=== PATIENT | male | born 1990 | race Hispanic/Latino ===

== ENCOUNTER → 2021-10-25 08:54 | Outpatient (CLI) | payer OTHER, SELFPAY ==
[2021-10-25 20:04] LABS: COVID19 - ORCAS (NP or Nasal) POSITIVE (Negative)
== END ==
PROVIDERS: Visit Provider Physician Assistant Medical
DX: Z20.822 Contact with and (suspected) exposure to COVID-19 (principal)
CPT/HCPCS: U0003

== ENCOUNTER 2023-08-14 10:58 | Emergency (ER) | payer OTHER, SELFPAY ==
--- NOTE | 2023-08-14 11:18 | PC.NURSE ---
Called for triage at [phone] and patient wasn't in waiting room. Will continue to recheck.
[2023-08-14 11:35] VITALS: BP 116/68; PULSE 81; RESP 22; TEMP 37.3; O2SAT 99; BMI 23.8
--- NOTE | 2023-08-14 11:35 | PC.NURSE ---
Patient called to come to triage and this Rn unable to find patient in waiting area.
--- NOTE | 2023-08-14 11:39 | PC.NURSE ---
This RN went out to the waiting room and patient was down in the surgical waiting room.
--- NOTE | 2023-08-14 14:02 | ED_ITS ---
HPI - Extremity Injury (Lower) General Chief Complaint: Extremity Injury, Lower Stated Complaint: hit with log at work Time Seen by Provider: 08/14/23 13:27 Source: patient Mode of arrival: Ambulatory History of Present Illness HPI Narrative: 33-year-old male presents for evaluation of left knee pain. Patient was struck in the leg with a heavy log while at work yesterday. Underwent negative x-ray imaging yesterday on [facility], and he was subsequently placed in a knee immobilizer and given crutches. He states that because of the pain and swelling there was concern for possible hardware displacement versus ligamentous injury and he was referred to the ER for additional evaluation. Patient has previous injury to lower L leg with chronically decreased ROM of the L ankle. Related Data Home Medications Medication Instructions Recorded Confirmed No Known Home Medications 08/13/23 08/13/23 Allergies Allergy/AdvReac Type Severity Reaction Status Date / Time No Known Drug Allergies Allergy Verified 08/14/23 11:46 Review of Systems Review of Systems Narrative: CONSTITUTIONAL- Denies: fever, chills, fatigue HEENT- Denies: sore throat, nosebleed, vision changes RESPIRATORY- Denies: shortness of breath, cough, wheezing CARDIAC- Denies: chest pain, edema, orthopnea GI- Denies: abdominal pain, nausea, vomiting, constipation, diarrhea - Denies: frequency, dysuria, hematuria, flank pain MSK-reports: Left knee pain, left knee swelling Denies: extremity pain, extremity swelling SKIN- Denies: rash, itching, burn, swelling NEUROLOGICAL- Denies: headache, numbness, weakness, dizziness PSYCHIATRIC- Denies: anxiety, depression, suicidal ideation, homicidal ideation Patient History Social History Smoking Status: Current every day smoker Smoking Status: Current every day smoker Substance Use Type: marijuana Exam Initial Vital Signs Initial Vital Signs: Vital Signs Temperature 99.1 F 08/14/23 11:35 Pulse Rate 81 08/14/23 11:35 Respiratory Rate 22 08/14/23 11:35 Blood Pressure 116/68 08/14/23 11:35 Pulse Oximetry 99 08/14/23 11:35 Oxygen Delivery Method Room Air 08/14/23 11:35 Const: Awake, alert, no acute distress, nontoxic appearing Eyes: PERRL, EOMI, conjunctiva normal ENT: Atraumatic, dentition normal, mucous membranes moist Cardiac: regular rate, regular rhythm RESP: unlabored, clear bilaterally, no wheezing GI: Atraumatic, soft, nontender, nondistended, no rebound, no guarding MSK: Swelling left knee compared to right knee. Pain of L knee with lateral stress Skin: Warm, Dry, intact, no rashes Neuro: AO x3, CN II-XII grossly intact, moves all extremities Psych: affect normal, mood normal, not suicidal, not homicidal Course Course Course Narrative: Patient presenting for concern of possible ligamentous injury versus hardware displacement of left knee after accident yesterday. No obvious displaced hardware on exam, patient does have swelling of the left knee, however patient already had negative x-rays taken yesterday and declines additional imaging at this time. I explained to the patient that there was no emergent need for MRI and he would need to follow up with either his primary care physician or orthopedic surgery for possible MRI and further evaluation of possible underlying ligamentous injury. Patient declined any pain medications in the emergency department. He we will call the Orthopedic surgery as soon as he leaves the emergency department. Counseled to continue to use crutches and the knee immobilizer. Rice instructions counseled at bedside. ED return precautions discussed at bedside. Patient expressed understanding of the plan and is in agreement at this time. All questions answered at the time of discharge. Vital Signs Vital signs: Vital Signs - 8 hr 08/14/23 11:35 Temperature 99.1 F Pulse Rate 81 Respiratory Rate 22 Blood Pressure 116/68 Pulse Oximetry 99 Oxygen Delivery Method Room Air Discharge Plan Departure Patient Disposition: Home Clinical Impression: Injury of knee, left, Contusion of knee, Sprain Instructions: DI for Knee Sprain, How to Use a Knee Immobilizer Prescriptions: No Action No Known Home Medications Referrals: Meir Sheriff MD [Physician] - Chad Gaytan MD [Primary Care Provider] - Stand Alone Forms: Patient Portal/API
== END 2023-08-14 14:17 | disposition home or self-care (01) ==
PROVIDERS: Emergency Provider Emergency Medicine; PCP Family Medicine
DX: S83.92XA Sprain of unspecified site of left knee, initial encounter (principal); W22.8XXA Striking against or struck by other objects, initial encounter; Y99.0 Civilian activity done for income or pay
CPT/HCPCS: 99281; 99282

== ENCOUNTER → 2023-10-27 16:17 | Outpatient (CLI) | payer OTHER, SELFPAY ==
--- NOTE | 2023-10-27 16:20 | DI.MRI.S_ITS ---
PROCEDURE: MR KNEE LT WO CON INDICATIONS: Contusion of left knee, initial encounter TECHNIQUE: Noncontrast sagittal PD fast spin echo and T2 fast spin echo with fat saturation, sagittal 3-D FLASH with fat saturation; coronal T1 spin echo and PD fast spin echo with fat saturation, and axial PD fast spin echo with fat saturation through the knee. COMPARISON: None. FINDINGS: Image quality: Excellent. Menisci: Signal abnormality involving posterior horn of medial meniscus is seen extending to inferior articulating surface series 7, image 8 suggestive of subtle oblique tear. The lateral meniscus is intact. The meniscal root ligaments appear intact. Cruciate ligaments: The anterior cruciate ligament is thickened with intrasubstance T2 hyperintense signal. The posterior cruciate ligament is intact. Medial structures: The medial collateral ligament appears thickened. Visualized portions of the pes anserinus tendons appear normal. No abnormal bursal fluid. Lateral structures: The lateral collateral ligament, long and short heads of the biceps femoris tendon appear intact. The popliteus tendon appears normal. Iliotibial band appears normal. Anterior structures: Distal quadriceps tendinosis at its superior patellar insertion is seen. Proximal and distal patellar tendinosis is also noted. Patellar alignment is normal. Chondromalacia involving lateral femoral trochlear cartilage is seen. No edema in the infrapatellar fat pad. Bones and cartilage: Prior intramedullary marked placement in tibial shaft is seen with susceptibility artifacts. No acute fracture or dislocation. Mild edema involving weight-bearing portion of lateral femoral condyle and medial periphery of medial femoral condyle is seen. Edema is also noted in proximal tibial shaft lateral to the fixation hardware. No discrete fracture line is seen. Articulating cartilage in medial and lateral femoral tibial compartments are normal in thickness. Patellar cartilage is intact. Joint space: There is small knee joint fluid. No Jaramillo's cyst. Normal appearing synovial plicae are incidentally noted. IMPRESSION: 1. Prior internal fixation of proximal tibial shaft with surgical hardware in place and susceptibility artifacts. Nonspecific mild edema in medial and lateral femoral condyle and proximal tibia suggestive of stress related changes versus contusion. No fracture or dislocation . Small joint effusion, no loose bodies. 2. 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 Rest of the articulating cartilages are intact . 3. Suggestion of subtle oblique tear involving posterior horn of medial meniscus extending to inferior articulating surface. The lateral meniscus is intact. 4. Sprain/low-grade intrasubstance partial-thickness tear involving ACL. No ACL rupture. The PCL is intact. 5. Low-grade MCL sprain. 6. Distal quadriceps tendinosis. Proximal and distal patellar tendinosis. Dictated by: Jason Berger M.D. on 10/27/2023 at 22:08 Approved by: Jason Berger M.D. on 10/27/2023 at 22:14
== END ==
PROVIDERS: PCP Family Medicine; Referring Provider Orthopaedic Surgery; Visit Provider Orthopaedic Surgery
DX: S80.02XA Contusion of left knee, initial encounter (principal); S83.512A Sprain of anterior cruciate ligament of left knee, initial encounter; S83.412A Sprain of medial collateral ligament of left knee, initial encounter; M25.462 Effusion, left knee; M94.262 Chondromalacia, left knee; X58.XXXA Exposure to other specified factors, initial encounter
CPT/HCPCS: 73721

== ENCOUNTER → 2024-09-28 14:12 | Outpatient (CLI) | payer OTHER, SELFPAY ==
--- NOTE | 2024-09-28 14:14 | DI.RAD.S_ITS ---
PROCEDURE: XR RIBS RT 2V INDICATIONS: RIB PAIN TECHNIQUE: 3 views of the ribs were acquired. COMPARISON: None. FINDINGS: Surgical changes and devices: None. Bones and chest wall: No displaced fracture or dislocation. Lungs and pleura: Where visualize, no dense consolidation or pleural effusions. IMPRESSION: No displaced rib fracture. If there is high concern for occult injury, consider repeat radiography or cross-sectional imaging. Dictated by: Amarjit Hadley M.D. on 09/28/2024 at 17:00 Approved by: Amarjit Hadley M.D. on 09/28/2024 at 17:01
== END ==
PROVIDERS: PCP Family Medicine; Referring Provider Family Medicine; Visit Provider Family Medicine
DX: R07.81 Pleurodynia (principal)
CPT/HCPCS: 71100